=== PATIENT | male | born 1955 | race Caucasian/White ===

== ENCOUNTER 2018-01-22 19:00 | Emergency (ER) | payer MEDICAID ==
[~2018-01-22] VITALS: Ht 185.4 cm; Wt 95.3 kg
[2018-01-22 19:06] VITALS: BP_SYST 127
[2018-01-22 20:12] VITALS: BP_SYST 121
== END 2018-01-22 20:12 | disposition home or self-care (01) ==
LOC: SED 19:00
DX: S05.01XA Injury of conjunctiva and corneal abrasion without foreign body, right eye, initial encounter (principal); Z86.19 Personal history of other infectious and parasitic diseases; Z85.828 Personal history of other malignant neoplasm of skin; X58.XXXA Exposure to other specified factors, initial encounter; Y93.89 Activity, other specified; Y92.89 Other specified places as the place of occurrence of the external cause; Y99.8 Other external cause status
CPT/HCPCS: 99283

== ENCOUNTER 2020-09-19 17:39 | Emergency (ER) | payer MEDICAID ==
[~2020-09-19] VITALS: Ht 185.4 cm; Wt 97.5 kg
[2020-09-19 17:39] VITALS: BP_SYST 138
[2020-09-19] MEDS ORDERED: ASPIRIN 81 MG TAB.CHEW PO ONE (18:30)
[2020-09-19 18:58] LABS: BASOPHILS % (AUTO) 0.5 % (0.0-2.0); EOSINOPHILS # (AUTO) 0.1 K/uL (0.0-0.4); EOSINOPHILS % (AUTO) 1.2 % (0.0-4.0); HEMOGLOBIN 15.8 g/dL (14.0-18.0); LYMPHOCYTES # (AUTO) 1.8 K/uL (1.0-5.5); LYMPHOCYTES % (AUTO) 28.5 % (20.5-51.5); MEAN CORPUSCULAR HEMOGLOBIN 33 pg (27-31); MEAN CORPUSCULAR HGB CONC 34 % (32-36); MEAN CORPUSCULAR VOLUME 96 fL (79.0-98.0); MONOCYTES # (AUTO) 0.8 K/uL (0.0-1.0); NEUTROPHILS # (AUTO) 3.5 K/uL (1.8-7.7); NEUTROPHILS % (AUTO) 56.8 % (40.0-70.0); PLATELET COUNT (AUTO) 168 K/uL (130-430); RED BLOOD CELL COUNT(AUTO) 4.82 MIL/uL (4.2-6.2); WHITE BLOOD COUNT (AUTO) 6.1 K/uL (4.8-10.8)
[2020-09-19 19:11] LABS: PROTHROMBIN TIME 9.9 SECS (9.5-12.5)
[2020-09-19 19:12] LABS: CALCIUM 9.3 mg/dL (8.4-11.0); CREATININE 1.1 mg/dL (0.55-1.30); POTASSIUM 3.6 mmol/L (3.5-5.1)
[2020-09-19 19:27] LABS: ALBUMIN 3.8 g/dL (3.4-4.8); TOTAL BILIRUBIN 0.8 mg/dL (0.0-1.0)
[2020-09-19 19:43] VITALS: BP_SYST 125
== END 2020-09-19 20:35 | disposition left against medical advice (07) ==
LOC: SED 17:39
DX: R07.89 Other chest pain (principal); R06.02 Shortness of breath
CPT/HCPCS: 36415; 71045; 80053; 82550; 83880; 84484; 85025; 85379; 85610-TC; 85730-TC; 93005; 99285